=== PATIENT | female | born 1970 | race Caucasian/White ===

== ENCOUNTER 2024-02-19 13:29 | Outpatient (AMB) | payer OTHER, SELFPAY ==
[2024-02-19 13:41] VITALS: BP 124/72; PULSE 91; O2SAT 100; BMI 25.1
--- NOTE | 2024-02-19 13:41 | MHC.OFFVIS ---
Vital Signs 02/19/24 13:41 Height 5 ft 5.5 in Weight 153 lb 0.013 oz BMI 25.1 BP 124/72 Blood Pressure Location Lt brachial Position Sitting Pulse 91 Pulse Source Pulse Oximeter Pulse Oximetry (%) 100 Oxygen Delivery Method Room Air Intake Visit Reasons: Lupus/cm Intake Note: Patient is here to follow up on lupus. Allergies azithromycin [Zithromax] Allergy (Unknown, Verified 02/19/24 13:45) Anaphylaxis codeine Allergy (Unknown, Verified 02/19/24 13:45) Headache diazepam [Valium] Allergy (Unknown, Verified 02/19/24 13:45) Anxiety Medication List - Last Reconciled 02/19/24 by Lukasz Marr MD amitriptyline 300 mg PO BEDTIME lamotrigine ER (Lamictal XR) 300 mg PO DAILY lithium carbonate ER 900 mg PO BID HPI HPI Lupus/cm: Details: Bilateral hip pain returned a month ago. She has been walking regularly with her 2-year-old grandson but reports that pain has come on during her walks. Denies any new rash., oral ulcers, Raynaud's phenomena, fevers, dyspnea, pleurisy, urinary symptoms, joint swelling or pain. She has been experiencing short-term memory loss in the last few months. Review of Systems Const All systems reviewed & are unremarkable except as noted in HPI and below Physical Exam Vital Signs: Last Vital Signs Pulse 91 02/19/24 13:41 BP 124/72 02/19/24 13:41 Pulse Ox 100 02/19/24 13:41 Oxygen Delivery Method Room Air 02/19/24 13:41 BMI result Body Mass Index 25.1 Const Other: General: Comfortable CVS: RRR Respiratory: clear to auscultation bilaterally. Good respiratory effort Skin: No lesions seen MSK: Bilateral trochanteric bursa tenderness was found. Good range of motion of bilateral hips. No synovitis of any joints. Good range of motion of upper extremities and lower extremities. Resting Tremors noted Office Procedures AMB Joint Injection/Aspiration Joint Injection/Aspiration Details: Right trochanteric bursa Prep: site was prepped using aseptic technique Injected: 40 mg of, Kenalog, with 1 mL of and 1% plain lidocaine Procedure: The patient tolerated the procedure well Coding 49392 - Large joint Additional procedure code (CPT) needed (Bilateral trochanteric bursa injections performed modifier needed) AMB Joint Injection/Aspiration Joint Injection/Aspiration Details: Left trochanteric bursa Prep: site was prepped using aseptic technique Injected: 40 mg of, Kenalog, with 1 mL of and 1% plain lidocaine Procedure: The patient tolerated the procedure well Coding 04411 - Large joint Additional procedure code (CPT) needed (Bilateral trochanteric bursa injections performed modifier needed) Office Meds Synvisc-One 48 mg/6 mL intra-articular syringe Performing Provider: Lukasz Marr MD [place] [facility] [place] [facility] Documented (not given) by: Lukasz Marr MD on 02/19/24 16:05 Reason Not Given: Not Medically Necessary Kenalog 40 mg/mL suspension for injection Performing Provider: Lukasz Marr MD [place] [facility] [place] [facility] Administered by: Lukasz Marr MD on 02/19/24 16:05 Dose Route Admin Location Dispensed Lot Number Expiration Date [facility] [employer] 40 mg intrabursal 1 mL AP [id number] [employer] lidocaine (PF) 10 mg/mL (1 %) injection solution Performing Provider: Lukasz Marr MD [place] [facility] [place] [facility] Administered by: Lukasz Marr MD on 02/19/24 16:05 Dose Route Admin Location Dispensed Lot Number Expiration Date [facility] [employer] 10 mg Infiltration 2 mL [id number] [facility] Kenalog 40 mg/mL suspension for injection Performing Provider: Lukasz Marr MD [place] [facility] [place] [facility] Administered by: Lukasz Marr MD on 02/19/24 16:05 Dose Route Admin Location Dispensed Lot Number Expiration Date [facility] [employer] 40 mg intrabursal 1 mL AP [id number] [employer] lidocaine (PF) 10 mg/mL (1 %) injection solution Performing Provider: Lukasz Marr MD [place] [facility] [place] [facility] Administered by: Lukasz Marr MD on 02/19/24 16:05 Dose Route Admin Location Dispensed Lot Number Expiration Date [facility] [employer] 10 mg Infiltration 2 mL [id number] [facility] Assessment & Plan Assessment & Plan (1) Systemic lupus erythematosus: Comment: Diagnosed in 2014 with SLE/mixed connective tissue disease in [place] due to only having 1 episode of scleritis and positive serologies(QUEENIE 1:640, positive ME[employer]ICE antibody, positive anti CCP antibody 72 and:. She was on hydroxychloroquine in 2014, which was decreased to 300 mg daily 08/05/2018 then discontinued. She has not had any new flares. Clinically and serologically quiescent off of DMARD therapy. Code(s): M32.9 - Systemic lupus erythematosus, unspecified Category: Medical Plan: We will monitor labs for disease activity. Labs ordered this visit Return to clinic in 3 months (2) Greater trochanteric bursitis of both hips: Comment: Uncontrolled. Code(s): M70.61 - Trochanteric bursitis, right hip; M70.62 - Trochanteric bursitis, left hip Category: Medical Plan: She received bilateral trochanteric bursa injections this visit Return to clinic in 3 months Continue to do home exercise program learned from PT in the past Orders: Orders Erythrocyte Sedimentation Rate Today M32.9 - Systemic lupus erythematosus, unspecified Alanine Aminotransferase Today M32.9 - Systemic lupus erythematosus, unspecified Creatinine Today M32.9 - Systemic lupus erythematosus, unspecified AMB Joint Injection/Aspiration Today M70.61 - Trochanteric bursitis, right hip, M70.62 - Trochanteric bursitis, left hip QUEENIE Reflex Titer and Pattern Today M32.9 - Systemic lupus erythematosus, unspecified Anti DNA DS Antibody Today M32.9 - Systemic lupus erythematosus, unspecified Aspartate Amino Transferase Today M32.9 - Systemic lupus erythematosus, unspecified C Reactive Protein Today M32.9 - Systemic lupus erythematosus, unspecified Complete Blood Count Auto Diff Today M32.9 - Systemic lupus erythematosus, unspecified Complement C4 Today M32.9 - Systemic lupus erythematosus, unspecified Complement C3 Today M32.9 - Systemic lupus erythematosus, unspecified Protein Creatinine Ratio, Ur Today M32.9 - Systemic lupus erythematosus, unspecified UA w Microscopic Today M32.9 - Systemic lupus erythematosus, unspecified AMB Joint Injection/Aspiration Today M70.61 - Trochanteric bursitis, right hip, M70.62 - Trochanteric bursitis, left hip Medications: New Kenalog (triamcinolone acetonide) 40 mg intrabursal ONCE 1 mL 0RF NS M70.61 - Trochanteric bursitis, right hip, M70.62 - Trochanteric bursitis, left hip lidocaine (PF) 10 mg Infiltration ONCE 1 mL 0RF M70.61 - Trochanteric bursitis, right hip, M70.62 - Trochanteric bursitis, left hip lidocaine (PF) 10 mg Infiltration ONCE 1 mL 0RF M70.61 - Trochanteric bursitis, right hip, M70.62 - Trochanteric bursitis, left hip Synvisc-One (hylan g-f 20) 48 mg (6 mL) intra-articular ONCE 6 mL 0RF NS M70.61 - Trochanteric bursitis, right hip, M70.62 - Trochanteric bursitis, left hip Kenalog (triamcinolone acetonide) 40 mg intrabursal ONCE 1 mL 0RF NS M70.61 - Trochanteric bursitis, right hip, M70.62 - Trochanteric bursitis, left hip Coding Level of Care Code Est Pt Level 4 (37284) Complex EM visit Add On G2211 Diagnoses Systemic lupus erythematosus M32.9 Greater trochanteric bursitis of both hips M70.61; M70.62 CPT Codes Coding - 16221 Large joint: 76904 - Large joint ([id number]) Coding - 48590 Large joint: 22429 - Large joint ([id number])
== END 2024-02-19 14:23 | disposition home or self-care (01) ==
PROVIDERS: PCP Internal Medicine; Visit Provider Internal Medicine Rheumatology
DX: M32.9 Systemic lupus erythematosus, unspecified (principal); M70.61 Trochanteric bursitis, right hip; M70.62 Trochanteric bursitis, left hip
CPT/HCPCS: 20610; 99214

== ENCOUNTER → 2024-02-19 13:29 | Outpatient (BNVA) | payer OTHER, SELFPAY | PROVIDERS: PCP Internal Medicine; Visit Provider Internal Medicine Rheumatology | DX: M32.9 Systemic lupus erythematosus, unspecified (principal); M70.62 Trochanteric bursitis, left hip; M70.61 Trochanteric bursitis, right hip | CPT/HCPCS: 20610; 99212; J2003; J3300 ==

== ENCOUNTER 2024-05-19 10:26 | Outpatient (REF) | payer OTHER, SELFPAY ==
[2024-05-19 11:02] LABS: MANUAL DIFF FLAG NO
[2024-05-19 11:18] LABS: Basophils Percent Auto 0.3 % (0-2); Eosinophils Absolute Auto 0.1 X10*3/uL (0.0-0.4); Eosinophils Percent Auto 1.8 % (0-4); Hematocrit 35.2 % (37.0-47.0); Hemoglobin 11.5 g/dl (12.0-16.0); Imm Gran Abs Auto 0.02 X10*3/uL (0.00-0.03); Imm Gran Pct Auto 0.5 % (0.0-0.4); Lymphocytes Absolute Auto 1.1 X10*3/uL (1.2-4.9); Lymphocytes Percent Auto 27.3 % (20-40); Mean Corpuscular HGB Conc 32.7 g/dl (31.0-35.0); Mean Corpuscular Hemoglobin 29.5 pg (27.0-33.0); Mean Corpuscular Volume 90.3 fL (80.0-98.0); Mean Platelet Volume 9.1 fL (9.4-12.3); Monocytes Absolute Auto 0.3 X10*3/uL (0.1-1.2); Monocytes Percent Auto 7.3 % (2-11); Neutrophils Absolute Auto 2.4 x10*3/uL (2.0-8.3); Neutrophils Percent Auto 62.8 % (45-73); Platelet Count 268 X10*3/uL (160-400); Red Cell Distribution Width 15.3 % (11.0-16.0); White Blood Count 3.9 X10*3/uL (4.8-10.8)
[2024-05-19 11:19] LABS: Appearance Urine Clear; Color Urine Yellow; Glucose Urine UA Negative (Negative); Leukocyte Esterase Urine Trace (Negative); Nitrite Urine Negative (Negative); PH 6.5 (5.0-9.0); Specific Gravity - Urine 1.015 (1.005-1.025); UMIC TRIGGER UA YES; Urine Blood Negative (Negative); Urine Ketones Negative (Negative); Urine Protein Negative (Neg-Trace)
[2024-05-19 11:23] LABS: Bacteria Urine Trace (None Seen); Hyaline Casts Urine 0-2 /LPF (0-2); RBC Urine 0-2 /HPF (0-2); Squamous Epithelial Cell Urine 0-2 /HPF (0-2); WBC Urine 0-5 /HPF (0-5)
[2024-05-19 11:55] LABS: Erythrocyte Sedimentation Rate 19 MM/HR (0-20)
[2024-05-19 12:03] LABS: Alanine Aminotransferase 13 U/L (0-31); Aspartate Amino Transferase 13 U/L (5-31); C Reactive Protein 0.16 mg/dL (< or = 0.50); Estimated Glomerular Filt Rate > 60
--- OUTSIDE RECORDS SUMMARY | 2024-05-19 12:11 | XMS_ITS | Clinical Summary ---
Author Organization [facility] Address [address] [place] [address] Care Team Providers Care Procurement Agent Name Role Phone Unavailable Primary Care Provider Unavailabl e Surgical History Surgery Date Site/Laterality Comments CHOLECYSTECTOMY PROCEDURE: AR CHOLECYSTECTOMY HYSTERECTOMY PROCEDURE: HISTORICAL HYSTERECTOMY; COMMENT: BLEEDING BLADDER SUSPENSION PROCEDURE: HISTORICAL BLADDER SUSPENSION NASAL SEPTUM SURGERY PROCEDURE: AR REPAIR NASAL SEPTAL PERFORATIONS; COMMENT: for sleep apnea BACK SURGERY 07/2020 PROCEDURE: HISTORICAL BACK SURGERY; COMMENT: stim device for bladder Medical History Medical History Date Comments Bipolar affective ([facility]) DX:B ipolar affective ([facility]); COMMENT: dR. Alonzo Smith IBS (irritable bowel syndrome) D X:IBS (irritable bowel syndrome) Urinary incontinence DX:Urinary incontinence; COMMENT: dR. Kamari Chowdhury, NOT ABLE TO TAKE MED DUE TO INTERACTIONS Chronic obstructive pulmonar y disease ([facility]) 05/11/2021 DX:Chronic obstructive pulmo nary disease ([facility]) Family History Medical History Relation Name Comments Other: lupus Mother's side 1 Aunt Multiple sclerosis Mother's side 2 mat un narayan Rheum arthritis Mother's side 2 Uncle Blindness Neg Hx Cataracts Neg Hx Glaucoma Neg Hx Macular degeneration Neg Hx Strabismus Neg Hx Relation Name Status Comments Father Alive cabg, AFIB, ipf VS. OTHER LUNG DISEASE, Mother Alive HEALTHY Mother's side 1 Mother's side 2 Social History Tobacco Use Types Packs/Day Years Used Date Smoking Tobacco: Former Cigarettes Q uit: 08/24/2010 Smokeless Tobacco: Never Alcohol Use Standard Drinks/Week Comments No 0 (1 standard drink = 0.6 oz pur e alcohol) Comments Unknown Sex and Gender Information Value Date Recorded Sex Assigned at Not on file Legal Sex Female 10:07 AM EST Gender Identity Not on file Sexual Orientation Not on file Obstetrics History Plan of Treatment Health Maintenance Due Date Last Done Comments Hepatitis A Vaccines (1 of 2 - Risk 2-dose series) 09/06/1987 Hepatitis B Vaccines (1 of 3 - 19+ 3-dose series) 09/06/1987 Pneumococcal Vaccine: 50+ Years (2 of 2 - PCV) 03/19/2006 03/19/2005 Pneumococcal Vaccine: Pediatrics (0 to 5 Years) and At-Risk Patients (6 to 64 Years) (2 of 2 - PCV) 03/19/2006 03/19/2005 Zoster Vaccines (1 of 2) 2018 Colorectal Cancer Screening: Colonoscopy 02/25/2022 Depression Screening 02/25/2022 HIV Screening 02/25/2022 Hepatitis C Screening 02/25/2022 Social Influencers of Health Screening 02/25/2022 Breast Cancer Screening 03/31/2023 03/31/2021, 03/31 COVID-19 Vaccine ( season) 2023 01/12/2021, 06/18/2020, 05/28/2020 Influenza Vaccine (#1) 2023 2, 11/25/2019, 03/20/2019, Additional history exists DTaP,Tdap,and Td Vaccines (2 - Td or Tdap) 12/11/2024 12/11/2014 HIB Vaccines Aged Out No longer eligi ble based on patient's age to complete this topic HPV Vaccines Aged Out No longer eligi ble based on patient's age to complete this topic IPV Vaccines Aged Out No longer eligi ble based on patient's age to complete this topic MMR Vaccines Aged Out No longer eligi ble based on patient's age to complete this topic Meningococcal ACWY Vaccine Aged Out N o longer eligible based on patient's age to complete this topic Meningococcal B Vacine Aged Out No lo nger eligible based on patient's age to complete this topic RSV Immunization Patients Under 20 months Aged Out No longer eligible based on patient's age to complete this topic Varicella Vaccines Aged Out No longer eligible based on patient's age to complete this topic Procedures Procedure Name Priority Date/Time Associated Diagnosis Comments JULIA SCREENING DIGITAL Routine 03/31/2021 10:13 AM EST Encounter for screening mammogram for malignant neoplasm of breast from Last 3 Months or Most Recently Relevant to Health Maintenance Results * JULIA SCREENING DIGITAL (03/31/2021 10:13 AM EST) Anatomical Region Laterality Modality Mammography 03/31/2021 9:30 AM EST Narrative 03/31/2021 10:13 AM EST [facility] Diagnostic Imaging Department [address] [place] [id number] Patient: ??CHARITY BLANCO ?/Age/Sex: 1970 - 50 - F Unit#: ??[id number] ? Location/Status: ??SPDIMAM/REG CLI ? Mnemonic/Ordering Site: ??DIGSC/SPMAM Ordering Physician: ??LIA GARDNER MD Julia Screening Digital - 03/31/21 - 50 EXAM: [facility] Screening Digital EXAM DATE AND TIME: 03/31/2021 9:50 AM HISTORY: ??Screening. Left breast cyst aspiration in 2017 yielding benign cytology. COMPARISON: ??03/31/20, 04/19/16, 03/17/16, 02/11/14 TECHNIQUE: CC and MLO views of both breasts were obtained using full field digital mammography. Bilateral digital breast tomosynthesis was performed in the MLO projection. Computer aided detection with the [employer] 7.2-H was employed. TISSUE DENSITY: a. The breasts are almost entirely fatty. FINDINGS: No suspicious masses, grouped microcalcifications, or areas of architectural distortion are seen. Few circumscribed nodules are again seen bilaterally, the largest an 11 mm nodule in the central left breast corresponding to the previously sampled complicated cyst. No significant change is seen. There are scattered microcalcifications, unchanged. Vascular calcification is present. The skin is unremarkable. IMPRESSION: Stable mammographic appearance of the breasts. ??No evidence of malignancy is seen. A negative mammogram in the presence of a clinically suspicious palpable abnormality does not preclude the possibility of malignancy or alter the indications for biopsy. BI-RADS: ??Category 2: Benign RECOMMENDATION(S): 1: Routine screening mammogram BILATERAL in 1 year. 72469, 01212 3342F, 7025F Dictating Physician: ??JAELYN MAST MD Electronically Signed by: ??JAELYN MAST MD Dic Date/Time: ??03/31/21 1012 Sign date/Time: ??03/31/21 1013 Procedure Note Jaelyn Mast MD - 03/08/2022 [facility] Diagnostic Imaging Department [address] [place] [id number] Patient: CHARITY BLANCO./Age/Sex: 1970 - 50 - F Unit#: [id number] Location/Status: [facility] Mnemonic/Ordering Site: [facility] Ordering Physician: LIA GARDNER MD [facility] Screening Digital - 03/31/21 - 0950 EXAM: [facility] Screening Digital EXAM DATE AND TIME: 03/31/2021 9:50 AM HISTORY: Screening. Left breast cyst aspiration in 2017 yielding benign cytology. COMPARISON: 03/31/20, 04/19/16, 03/17/16, 02/11/14 TECHNIQUE: CC and MLO views of both breasts were obtained using fullfield digital mammography. Bilateral digital breast tomosynthesis was performedin the MLO projection. Computer aided detection with the Pull.2-NetBeezas employed. TISSUE DENSITY: a. The breasts are almost entirely fatty. FINDINGS: No suspicious masses, grouped microcalcifications, or areas ofarchitectural distortion are seen. Few circumscribed nodules are again seen bilaterally, the largest an 11mm nodule in the central left breast corresponding to the previouslysampled complicated cyst. No significant change is seen. There are scattered microcalcifications, unchanged. Vascular calcification is present. The skin is unremarkable. IMPRESSION: Stable mammographic appearance of the breasts. No evidence of malignancyis seen. A negative mammogram in the presence of a clinically suspicious palpable abnormality does not preclude the possibility of malignancy or alter the indications for biopsy. BI-RADS: Category 2: Benign RECOMMENDATION(S): 1: Routine screening mammogram BILATERAL in 1 year. 92716, 16781 3342F, 7025F Dictating Physician: JAELYN MAST MD Electronically Signed by: JAELYN MAST MD Dic Date/Time: 03/31/21 1012 Sign date/Time: 03/31/21 1013 us Lia Gardner MD IMG BI PROCEDURES Final Resul t from Last 3 Months or Most Recently Relevant to Health Maintenance
[2024-05-19 12:29] LABS: Creatinine Urine 67.99 mg/dL; Total Protein Urine Random < 7 mg/dL (<12)
[2024-05-20 14:09] LABS: Anti DNA DS Antibody <1 IU/mL
[2024-05-20 14:54] LABS: Complement C3 143 mg/dL (83-193)
[2024-05-23 13:48] LABS: Anti Nuclear Antibody Pattern Nuclear, Speckled; Anti Nuclear Antibody Screen POSITIVE (NEGATIVE)
== END 2024-05-19 10:27 | disposition home or self-care (01) ==
LOC: HO.LAB 10:26
PROVIDERS: PCP Internal Medicine; Visit Provider Internal Medicine Rheumatology
DX: M32.9 Systemic lupus erythematosus, unspecified (principal)
CPT/HCPCS: 36415; 81001; 82565; 82570; 84156; 84450; 84460; 85025; 85652; 86038; 86039; 86140; 86160; 86225

== ENCOUNTER 2024-05-22 12:37 | Outpatient (AMB) | payer OTHER, SELFPAY ==
--- NOTE | 2024-05-22 12:47 | A.OFFVIS_ITS ---
Vital Signs 05/22/24 12:51 Height 5 ft 5.5 in Weight 145 lb BMI 23.8 BP 100/70 Blood Pressure Location Lt brachial Position Sitting Pulse 88 Pulse Source Pulse Oximeter Pulse Oximetry (%) 98 Oxygen Delivery Method Room Air Intake Visit Reasons: Follow Up 3mo Intake Note: Patient presents for follow for lupus. Allergies azithromycin [Zithromax] Allergy (Unknown, Verified 05/22/24 12:49) Anaphylaxis codeine Allergy (Unknown, Verified 05/22/24 12:49) Headache diazepam [Valium] Allergy (Unknown, Verified 05/22/24 12:49) Anxiety HPI HPI Follow Up 3mo: Details: She recently developed oral ulcers. She currently has an ulcer on her tongue on left lateral side. She was having ulcers on and off at the tip of her tongue. She has developed a rash on her face. She has increased pain in her shoulders with muscle pain. No joints are swollen. Denies fevers, dyspnea, pleurisy, Raynaud's syndrome, urinary symptoms. She was told her tremors were related to lithium side effect. [place] level was normal. HPI Comments Details: In the last few weeks she has developed rash on her face, oral ulcers, joint pain in upper extremities, fatigue. tremors are worse - side effect of lithium. Review of Systems Const All systems reviewed & are unremarkable except as noted in HPI and below Physical Exam Vital Signs: Last Vital Signs Pulse 88 05/22/24 12:51 BP 100/70 05/22/24 12:51 Pulse Ox 98 05/22/24 12:51 Oxygen Delivery Method Room Air 05/22/24 12:51 BMI result Body Mass Index 23.8 Const Other: General: Comfortable CVS: RRR Respiratory: clear to auscultation bilaterally. Good respiratory effort Oral: Ulceration left lateral tongue Lymphadenopathy: No cervical lymphadenopathy present Skin: Erythema on cheeks, forehead and chin MSK: Bilateral trochanteric bursa tenderness was found. Good range of motion of bilateral hips. Tender bilateral shoulders. No synovitis of any joints. Shoulder abduction right shoulder 160 degrees, left shoulder 170 degrees with good internal external rotation. Results Reviewed Results Reviewed: Labs from 05/22/2019 5th reviewed. Assessment & Plan Assessment & Plan (1) Systemic lupus erythematosus: Comment: New onset development of facial rash, oral ulcers, polyarthralgias, myalgias, leukopenia and mild normocytic anemia are concerning for lupus flare. Rheumatology history: Diagnosed in 2015 with SLE/mixed connective tissue disease in [place] due to only having 1 episode of scleritis and positive serologies (QUEENIE 1:640, positive AUTOPSY ASSISTANT antibody >8.0, positive anti CCP antibody 72). She was on hydroxychloroquine in 2014, which was decreased to 300 mg daily 08/05/2018 then discontinued because she was in remission. Code(s): M32.9 - Systemic lupus erythematosus, unspecified Category: Medical Qualifiers: Systemic lupus erythematosus organ involvement: unspecified Systemic lupus erythematosus type: unspecified Qualified Code(s): M32.9 - Systemic lupus erythematosus, unspecified Plan: T spot and hepatitis B panel ordered. Workup for anemia ordered for hemolytic anemia and iron deficiency Prednisone course ordered After lab results are back, I will restart hydroxychloroquine 300mg daily Return to clinic in 3 months (2) Greater trochanteric bursitis of both hips: Comment: Recurrent pain is tolerable. Code(s): M70.61 - Trochanteric bursitis, right hip; M70.62 - Trochanteric bursitis, left hip Category: Medical Plan: Monitor clinically Continue to do home exercise program learned from PT in the past Return to clinic in 3 months (3) Normocytic anemia: Code(s): D64.9 - Anemia, unspecified Category: Medical Plan: Workup ordered for further evaluation. See above Orders: Orders IRON PROFILE 05/22/24 M32.9 - Systemic lupus erythematosus, unspecified Ferritin 05/22/24 D64.9 - Anemia, unspecified, M32.9 - Systemic lupus erythematosus, unspecified Transferrin 05/22/24 D64.9 - Anemia, unspecified, M32.9 - Systemic lupus erythematosus, unspecified T Spot TB 05/22/24 M32.9 - Systemic lupus erythematosus, unspecified Hepatitis B,C Profile 05/22/24 M32.9 - Systemic lupus erythematosus, unspecified Direct Jessie (REECE) 05/22/24 D64.9 - Anemia, unspecified, M32.9 - Systemic l upus erythematosus, unspecified Haptoglobin 05/22/24 D64.9 - Anemia, unspecified Lactate Dehydrogenase 05/22/24 M32.9 - Systemic lupus erythematosus, unspecified Medications: New prednisone Take 4 tablets daily 3 days, 3 tablets daily 3 days, 2 tablet daily 3 days, 1 tablet daily 3 days, then stop. Take prednisone with food. 5 mg PO DIRECTED 30 days 30 tabs 0RF Coding Level of Care Code Est Pt Level 4 (59942) Complex EM visit Add On G2211 Diagnoses Systemic lupus erythematosus, unspecified SLE type, unspecified organ involvement status M32.9 Systemic lupus erythematosus organ involvement: unspecified Systemic lupus erythematosus type: unspecified Greater trochanteric bursitis of both hips M70.61; M70.62 Normocytic anemia D64.9
[2024-05-22 12:51] VITALS: BP 100/70; PULSE 88; O2SAT 98; BMI 23.8
--- OUTSIDE RECORDS SUMMARY | 2024-05-22 15:09 | XMS_ITS | Clinical Summary ---
Author Organization [facility] Address [address] [place] [address] Care Team Providers Care Custom Furrier Name Role Phone Unavailable Primary Care Provider Unavailabl e Surgical History Surgery Date Site/Laterality Comments CHOLECYSTECTOMY PROCEDURE: TN CHOLECYSTECTOMY HYSTERECTOMY PROCEDURE: HISTORICAL HYSTERECTOMY; COMMENT: BLEEDING BLADDER SUSPENSION PROCEDURE: HISTORICAL BLADDER SUSPENSION NASAL SEPTUM SURGERY PROCEDURE: TN REPAIR NASAL SEPTAL PERFORATIONS; COMMENT: for sleep apnea BACK SURGERY 07/2020 PROCEDURE: HISTORICAL BACK SURGERY; COMMENT: stim device for bladder Medical History Medical History Date Comments Bipolar affective ([facility]) DX:B ipolar affective ([facility]); COMMENT: dR. Alonzo Smith IBS (irritable bowel syndrome) D X:IBS (irritable bowel syndrome) Urinary incontinence DX:Urinary incontinence; COMMENT: dR. Kamari Chowdhury, NOT ABLE TO TAKE MED DUE TO INTERACTIONS Chronic obstructive pulmonar y disease ([facility]) 05/11/2021 DX:Chronic obstructive pulmo nary disease ([facility]) Family History Medical History Relation Name Comments [...] AM EST Narrative 03/31/2021 10:13 AM EST [facility] Diagnostic Imaging Department [address] [place] [id number] Patient: ??CHARITY BLANCO ?/Age/Sex: 1970 - 50 - F Unit#: ??[id number] ? Location/Status: ??SPDIMAM/REG CLI ? Mnemonic/Ordering Site: ??DIGSC/SPMAM Ordering Physician: ??LIA GARDNER MD Julia Screening Digital - 03/31/21 - 50 EXAM: [facility] Screening Digital EXAM DATE AND TIME: 03/31/2021 9:50 AM HISTORY: ??Screening. Left breast cyst aspiration in 2017 yielding benign cytology. COMPARISON: ??03/31/20, 04/19/16, 03/17/16, 02/11/14 TECHNIQUE: CC and MLO views of both breasts were obtained using full field digital mammography. Bilateral digital breast tomosynthesis was performed in the MLO projection. Computer aided detection with the [employer] 7.2-H was employed. TISSUE DENSITY: a. The [...] Routine screening mammogram BILATERAL in 1 year. 27058, 14799 3342F, 7025F Dictating Physician: ??JAELYN MAST MD Electronically Signed by: ??JAELYN MAST MD Dic Date/Time: ??03/31/21 1012 Sign date/Time: ??03/31/21 1013 Procedure Note Jaelyn Mast MD - 03/08/2022 [facility] Diagnostic Imaging Department [address] [place] [id number] Patient: CHARITY BLANCO./Age/Sex: 1970 - 50 - F Unit#: [id number] Location/Status: [facility] Mnemonic/Ordering Site: [facility] Ordering Physician: LIA GARDNER MD [facility] Screening Digital - 03/31/21 - 0950 EXAM: [facility] Screening Digital EXAM DATE AND TIME: 03/31/2021 9:50 AM HISTORY: Screening. Left breast cyst aspiration in 2017 yielding benign cytology. COMPARISON: 03/31/20, 04/19/16, 03/17/16, 02/11/14 TECHNIQUE: CC and MLO views of both breasts were obtained using fullfield digital mammography. Bilateral digital breast tomosynthesis was performedin the MLO projection. Computer aided detection with the [employer]@as employed. TISSUE DENSITY: a. The breasts are [...] Routine screening mammogram BILATERAL in 1 year. 82337, 95350 3342F, 7025F Dictating Physician: JAELYN MAST MD Electronically Signed by: JAELYN MAST MD Dic Date/Time: 03/31/21 1012 Sign date/Time: 03/31/21 1013 us Lia Gardner MD IMG BI PROCEDURES Final Resul t from Last 3 Months or Most Recently Relevant to Health Maintenance
== END 2024-05-22 13:36 | disposition home or self-care (01) ==
PROVIDERS: PCP Internal Medicine; Visit Provider Internal Medicine Rheumatology
DX: M32.9 Systemic lupus erythematosus, unspecified (principal); M70.61 Trochanteric bursitis, right hip; M70.62 Trochanteric bursitis, left hip; D64.9 Anemia, unspecified
CPT/HCPCS: 99214; G2211

== ENCOUNTER 2024-05-22 12:37 | Outpatient (REF) | payer OTHER, SELFPAY ==
--- OUTSIDE RECORDS SUMMARY | 2024-05-22 16:32 | XMS_ITS | Clinical Summary ---
Author Organization [facility] Address [address] [place] [address] Care Team Providers Care Data Warehouse Consultant Name Role Phone Unavailable Primary Care Provider Unavailabl e Surgical History Surgery Date Site/Laterality Comments CHOLECYSTECTOMY PROCEDURE: DC CHOLECYSTECTOMY HYSTERECTOMY PROCEDURE: HISTORICAL HYSTERECTOMY; COMMENT: BLEEDING BLADDER SUSPENSION PROCEDURE: HISTORICAL BLADDER SUSPENSION NASAL SEPTUM SURGERY PROCEDURE: DC REPAIR NASAL SEPTAL PERFORATIONS; COMMENT: for sleep apnea BACK SURGERY 07/2020 PROCEDURE: HISTORICAL BACK SURGERY; COMMENT: stim device for bladder Medical History Medical History Date Comments Bipolar affective ([facility]) DX:B ipolar affective ([facility]); COMMENT: dR. Alonzo Smith IBS (irritable bowel syndrome) D X:IBS (irritable bowel syndrome) Urinary incontinence DX:Urinary incontinence; COMMENT: dR. Kamari Chowdhury, NOT ABLE TO TAKE MED DUE TO INTERACTIONS Chronic obstructive pulmonar y disease ([facility]) 05/11/2021 DX:Chronic obstructive pulmo nary disease ([facility]) Family History Medical History Relation [...] AM EST Narrative 03/31/2021 10:13 AM EST [facility] Diagnostic Imaging Department [address] [place] [id number] Patient: ??CHARITY BLANCO ?/Age/Sex: 1970 - 50 - F Unit#: ??[id number] ? Location/Status: ??SPDIMAM/REG CLI ? Mnemonic/Ordering Site: ??DIGSC/SPMAM Ordering Physician: ??LIA GARDNER MD Julia Screening Digital - 03/31/21 - 50 EXAM: [facility] Screening Digital EXAM DATE AND TIME: 03/31/2021 9:50 AM HISTORY: ??Screening. Left breast cyst aspiration in 2017 yielding benign cytology. COMPARISON: ??03/31/20, 04/19/16, 03/17/16, 02/11/14 TECHNIQUE: CC and MLO views of both breasts were obtained using full field digital mammography. Bilateral digital breast tomosynthesis was performed in the MLO projection. Computer aided detection with the [employer] 7.2-H was employed. TISSUE DENSITY: a. The [...] Routine screening mammogram BILATERAL in 1 year. 08258, 28840 3342F, 7025F Dictating Physician: ??JAELYN MAST MD Electronically Signed by: ??JAELYN MAST MD Dic Date/Time: ??03/31/21 1012 Sign date/Time: ??03/31/21 1013 Procedure Note Jaelyn Mast MD - 03/08/2022 [facility] Diagnostic Imaging Department [address] [place] [id number] Patient: CHARITY BLANCO./Age/Sex: 1970 - 50 - F Unit#: [id number] Location/Status: [facility] Mnemonic/Ordering Site: [facility] Ordering Physician: LIA GARDNER MD [facility] Screening Digital - 03/31/21 - 0950 EXAM: [facility] Screening Digital EXAM DATE AND TIME: 03/31/2021 9:50 AM HISTORY: Screening. Left breast cyst aspiration in 2017 yielding benign cytology. COMPARISON: 03/31/20, 04/19/16, 03/17/16, 02/11/14 TECHNIQUE: CC and MLO views of both breasts were obtained using fullfield digital mammography. Bilateral digital breast tomosynthesis was performedin the MLO projection. Computer aided detection with the [employer] employed. TISSUE DENSITY: a. The breasts are [...] Routine screening mammogram BILATERAL in 1 year. 70848, 58759 3342F, 7025F Dictating Physician: JAELYN MAST MD Electronically Signed by: JAELYN MAST MD Dic Date/Time: 03/31/21 1012 Sign date/Time: 03/31/21 1013 us Lia Gardner MD IMG BI PROCEDURES Final Resul t from Last 3 Months or Most Recently Relevant to Health Maintenance
[2024-05-23 09:08] LABS: HBc Num1 0.06 S/CO (0.00-0.79); HBsAGNum1 0.27 S/CO (0.00-0.99); Hepatitis B Core Antibody Nonreactive (Nonreactive); Hepatitis B Surface Antigen Negative (Negative); ~Hepatitis B Surface Antibody NONREACTIVE (Nonreactive); ~Hepatitis C Antibody Nonreactive (Nonreactive)
[2024-05-23 12:04] LABS: Iron 52 mcg/dL (30-160); Percent Iron Saturation 23 % (15-50); Total Iron Binding Capacity 225 mcg/dL (228-428); Unsaturated Iron Binding 173 ug/dL
[2024-05-23 12:05] LABS: Haptoglobin 192 mg/dL (35-250)
[2024-05-23 12:29] LABS: Ferritin 163 ng/mL (10-250)
[2024-05-23 12:41] LABS: Lactate Dehydrogenase 164 U/L (122-220)
[2024-05-24 19:19] LABS: Transferrin 200 mg/dL (188-341)
[2024-05-26 09:39] LABS: TS Negative Control Passed; TS Panel A 0; TS Panel B 0; TS Positive Control Passed; TSpotTB Negative (Negative)
== END 2024-05-22 12:38 | disposition home or self-care (01) ==
LOC: HO.HKASLDS 12:37
PROVIDERS: PCP Internal Medicine; Visit Provider Internal Medicine Rheumatology
DX: M32.9 Systemic lupus erythematosus, unspecified (principal); D64.9 Anemia, unspecified; M70.61 Trochanteric bursitis, right hip; M70.62 Trochanteric bursitis, left hip
CPT/HCPCS: 36415; 82728; 83010; 83540; 83615; 84466; 86481; 86704; 86706; 86803; 87340; 99212

== ENCOUNTER 2024-08-27 13:33 | Outpatient (AMB) | payer OTHER, SELFPAY ==
[2024-08-27 13:36] VITALS: BP 124/74; PULSE 88; O2SAT 98; BMI 28.0
--- NOTE | 2024-08-27 13:36 | A.OFFVIS_ITS ---
Vital Signs 08/27/24 13:36 Height 5 ft 5.5 in Weight 171 lb BMI 28.0 BP 124/74 Blood Pressure Location Lt brachial Position Sitting Pulse 88 Pulse Source Pulse Oximeter Pulse Oximetry (%) 98 Oxygen Delivery Method Room Air Intake Visit Reasons: 3 months Intake Note: Patient presents for follow for lupus. Allergies azithromycin [Zithromax] Allergy (Unknown, Verified 08/27/24 13:42) Anaphylaxis codeine Allergy (Unknown, Verified 08/27/24 13:42) Headache diazepam [Valium] Allergy (Unknown, Verified 08/27/24 13:42) Anxiety HPI HPI 3 months: Details: She developed swelling in bilateral lower extremities. She is experiencing left calf spasms. She is unable to feel her feet. She developed purple discoloration of tips of bilateral 2nd toes. She denies trauma associated with onset of discoloration of toes. She is unable to tolerate compression stockings. Denies dyspnea, pleurisy, fevers, rash, urinary symptoms. She has Raynaud's syndrome affecting her right and 2nd fingers with white discoloration when exposed to cold temperatures such as a freezer. Self resolving. Physical Exam Vital Signs: Last Vital Signs Pulse 88 08/27/24 13:36 BP 124/74 08/27/24 13:36 Pulse Ox 98 08/27/24 13:36 Oxygen Delivery Method Room Air 08/27/24 13:36 BMI result Body Mass Index 28.0 Const Other: General: Comfortable CVS: RRR Respiratory: clear to auscultation bilaterally. Good respiratory effort Oral: Ulceration left lateral tongue Lymphadenopathy: No cervical lymphadenopathy present Skin: Erythema on cheeks, forehead and chin MSK: Bilateral trochanteric bursa tenderness was found. Good range of motion of bilateral hips. Tender bilateral shoulders. No synovitis of any joints. Shoulder abduction right shoulder 160 degrees, left shoulder 170 degrees with good internal external rotation. Assessment & Plan Assessment & Plan (1) Localized swelling of both lower legs: Comment: With discoloration of right 2nd and 3rd toes and left 2nd toe is concerning for arterial occlusion. She has calf pain. Less likely related to hydroxychloroquine side effect. Her her presentation is not unknown rare or common side effect of hydroxychloroquine. Code(s): R22.43 - Localized swelling, mass and lump, lower limb, bilateral Category: Medical Plan: I have ordered ultrasound of lower extremities duplex arterial and venous complete studies stat at [facility] (2) Systemic lupus erythematosus: Comment: SLE flare consisting of facial rash, oral ulcers, polyarthralgias, myalgias have resolved after prednisone course and being on hydroxychloroquine. She had leukopenia and mild normocytic anemia May 2024 labs that support SLE flare. She feels well. 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 She was on hydroxychloroquine in 2014, which was decreased to 300 mg daily 08/05/2018 then discontinued because she was in remission. HCQ restarted 05/2024 due to flare consisting of facial rash, oral ulcers, polyarthralgias, myalgias, leukopenia and mild normocytic anemia. Code(s): M32.9 - Systemic lupus erythematosus, unspecified Category: Medical Qualifiers: Systemic lupus erythematosus type: unspecified Systemic lupus erythematosus organ involvement: unspecified Qualified Code(s): M32.9 - Systemic lupus erythematosus, unspecified Plan: Continue hydroxychloroquine 300mg daily Labs for disease and drug monitoring ordered this visit Return to clinic in 3 months (3) Greater trochanteric bursitis of both hips: Comment: Recurrent pain is uncontrolled Code(s): M70.61 - Trochanteric bursitis, right hip; M70.62 - Trochanteric bursitis, left hip Category: Medical Plan: Holding treatment with cortisone injection at this time due to concern for arterial occlusion of lower extremities. I will be in touch with patient in regards to ultrasound results and we will consider scheduling her an appointment in the future for bilateral trochanteric bursa injections Return to clinic in 3 months (4) Normocytic anemia: Code(s): D64.9 - Anemia, unspecified Category: Medical Plan: Rechecking CBC Orders: Orders US duplex arterial venous comp Today R22.43 - Localized swelling, mass and lump, lower limb, bilateral Alanine Aminotransferase Today M32.9 - Systemic lupus erythematosus, unspecified Aspartate Amino Transferase Today M32.9 - Systemic lupus erythematosus, unspecified Creatinine Today M32.9 - Systemic lupus erythematosus, unspecified UA w Microscopic Today M32.9 - Systemic lupus erythematosus, unspecified Complement C4 Today M32.9 - Systemic lupus erythematosus, unspecified Complete Blood Count Man Dif Today M32.9 - Systemic lupus erythematosus, unspecified C Reactive Protein Today M32.9 - Systemic lupus erythematosus, unspecified Erythrocyte Sedimentation Rate Today M32.9 - Systemic lupus erythematosus, unspecified Protein Creatinine Ratio, Ur Today M32.9 - Systemic lupus erythematosus, unspecified Complement C3 Today M32.9 - Systemic lupus erythematosus, unspecified Anti DNA DS Antibody Today M32.9 - Systemic lupus erythematosus, unspecified Coding Level of Care Code Est Pt Level 4 (65528) Complex EM visit Add On G2211 Diagnoses Localized swelling of both lower legs R22.43 Systemic lupus erythematosus, unspecified SLE type, unspecified organ involvement status M32.9 Systemic lupus erythematosus type: unspecified Systemic lupus erythematosus organ involvement: unspecified Greater trochanteric bursitis of both hips M70.61; M70.62 Normocytic anemia D64.9
--- OUTSIDE RECORDS SUMMARY | 2024-08-27 15:19 | XMS_ITS | Clinical Summary ---
Author Organization [facility] Address [address] [place] [address] Care Team Providers Care Eastern Philosophy Professor Name Role Phone Unavailable Primary Care Provider Unavailabl e Surgical History Surgery Date Site/Laterality Comments CHOLECYSTECTOMY PROCEDURE: [place] CHOLECYSTECTOMY HYSTERECTOMY PROCEDURE: HISTORICAL HYSTERECTOMY; COMMENT: BLEEDING BLADDER SUSPENSION PROCEDURE: HISTORICAL BLADDER SUSPENSION NASAL SEPTUM SURGERY PROCEDURE: VT REPAIR NASAL SEPTAL PERFORATIONS; COMMENT: for sleep apnea BACK SURGERY 07/2020 PROCEDURE: HISTORICAL BACK SURGERY; COMMENT: stim device for bladder Medical History Medical History Date Comments Bipolar affective ([facility], [facility] V[facility]) DX:Bipolar affective ([facility]); COMMENT: dR. Alonzo Smith IBS (irritable bowel syndrome) D X:IBS (irritable bowel syndrome) Urinary incontinence DX:Urinary incontinence; COMMENT: dR. Kamari Chowdhury, NOT ABLE TO TAKE MED DUE TO INTERACTIONS Chronic obstructive pulmonar y disease ([facility] V24, [facility] V28) 05/11/2021 DX:Chronic obstructive pulm onary disease ([facility]) Family History Medical History Relation Name Comments [...] season) 2023 01/12/2021, 06/18/2020, 05/28/2020 Influenza Vaccine (Season Ended) 2024 05/11/2021, 11/25/2019, 03/20/2019, Additional history exists DTaP,Tdap,and Td [...] age to complete this topic Meningococcal B Vaccine Aged Out No l onger eligible based on patient's age to complete [...] AM EST Narrative 03/31/2021 10:13 AM EST [facility] Diagnostic Imaging Department [address] [place] [id number] Patient: ??CHARITY BLANCO ?/Age/Sex: 1970 - 50 - F Unit#: ??[id number] ? Location/Status: ??SPDIMAM/REG CLI ? Mnemonic/Ordering Site: ??DIGSC/SPMAM Ordering Physician: ??LIA GARDNER MD Julia Screening Digital - 03/31/21 - 0950 EXAM: [facility] Screening Digital EXAM DATE AND TIME: 03/31/2021 9:50 AM HISTORY: ??Screening. Left breast cyst aspiration in 2017 yielding benign cytology. COMPARISON: ??03/31/20, 04/19/16, 03/17/16, 02/11/14 TECHNIQUE: CC and MLO views of both breasts were obtained using full field digital mammography. Bilateral digital breast tomosynthesis was performed in the MLO projection. Computer aided detection with the [employer] 7.2-H was employed. TISSUE DENSITY: a. The [...] Routine screening mammogram BILATERAL in 1 year. 02048, 26684 3342F, 7025F Dictating Physician: ??JAELYN MAST MD Electronically Signed by: ??JAELYN MAST MD Dic Date/Time: ??03/31/21 101 Sign date/Time: ??03/31/21 1013 Procedure Note Jaelyn Mast MD - 03/08/2022 [facility] Diagnostic Imaging Department [address] [place] [id number] Patient: FRANCISCHARITY D.O.B./Age/Sex: 1970 - 50 - F Unit#: [id number] [facility]Ordering [facility] Ordering Physician: LIA GARDNER MD [facility] Screening Digital - 03/31/21 - 0950 EXAM: [facility] Screening Digital EXAM DATE AND TIME: 03/31/2021 9:50 AM HISTORY: Screening. Left breast cyst aspiration in 2017 yielding benign cytology. COMPARISON: 03/31/20, 04/19/16, 03/17/16, 02/11/14 TECHNIQUE: CC and MLO views of both breasts were obtained using fullfield digital mammography. Bilateral digital breast tomosynthesis was performedin the MLO projection. Computer aided detection with the [employer]as employed. TISSUE DENSITY: a. The breasts are [...] Routine screening mammogram BILATERAL in 1 year. 43264, 62181 3342F, 7025F Dictating Physician: JAELYN MAST MD Electronically Signed by: JAELYN MAST MD Dic Date/Time: 03/31/21 1012 Sign date/Time: 03/31/21 1013 us Lia Gardner MD IMG BI PROCEDURES Final Resul t from Last 3 Months or Most Recently Relevant to Health Maintenance
== END 2024-08-27 14:12 | disposition home or self-care (01) ==
LOC: HO.RHES 13:33
PROVIDERS: PCP Internal Medicine; Visit Provider Internal Medicine Rheumatology
DX: R22.43 Localized swelling, mass and lump, lower limb, bilateral (principal); M32.9 Systemic lupus erythematosus, unspecified; M70.61 Trochanteric bursitis, right hip; M70.62 Trochanteric bursitis, left hip; D64.9 Anemia, unspecified
CPT/HCPCS: 99214; G2211

== ENCOUNTER → 2024-08-27 13:33 | Outpatient (BNVA) | payer OTHER, SELFPAY | PROVIDERS: PCP Internal Medicine; Visit Provider Internal Medicine Rheumatology | DX: M32.9 Systemic lupus erythematosus, unspecified (principal); R22.43 Localized swelling, mass and lump, lower limb, bilateral; I73.00 Raynaud's syndrome without gangrene; M70.61 Trochanteric bursitis, right hip; M70.62 Trochanteric bursitis, left hip; D64.9 Anemia, unspecified | CPT/HCPCS: 99212 ==

== ENCOUNTER 2024-08-27 15:05 | Outpatient (REF) | payer OTHER, SELFPAY ==
--- NOTE | ~2024-08-27 | US_ITS ---
EXAMINATION: US TRIPLEX LOWER EXTREMITY, BILATERAL CLINICAL INFORMATION: Bilateral lower extremity edema COMPARISON: None available. TECHNIQUE: Color-flow triplex imaging with spectral analysis and compression Doppler were performed on the bilateral lower extremities. FINDINGS: Respiratory variation, normal compression and augmented flow are noted throughout the bilateral lower extremities. The visualized common femoral vein, superficial femoral vein, profunda femoral vein, popliteal vein and midcalf peroneal and posterior tibial venous segments show no evidence of deep venous thrombosis bilaterally. US/US venous duplex LE BI IMPRESSION: No evidence of deep venous thrombosis involving the bilateral lower extremities. Electronically signed by: Jason Vásquez MD 08/27/2024 04:14 PM EDT
--- NOTE | ~2024-08-27 | US_ITS ---
EXAMINATION: Noninvasive assessment of the bilateral lower extremities. CLINICAL INFORMATION: Discoloration of feet TECHNIQUE: Duplex Doppler techniques with waveform analysis and measurement of velocities in the bilateral common femoral, profunda femoris, superficial femoral, popliteal and tibial arteries were performed. The study was performed only at rest. COMPARISON: None FINDINGS: DIRECT DUPLEX DOPPLER FINDINGS: RIGHT LEG: Common femoral artery: 182 cm/s, phasicity: Triphasic. Profunda femoris artery: 77 cm/s, phasicity: Probably triphasic. Superficial femoral artery (proximal): 116 cm/s, phasicity: Triphasic. Superficial femoral artery (mid): 107 cm/s, phasicity: Triphasic. Superficial femoral artery (distal): 75 cm/s, phasicity: Triphasic. Popliteal artery: 63 cm/s, phasicity: Triphasic. Posterior tibial artery: 53 cm/s, phasicity: [Triphasic. Peroneal artery: 44 cm/s, phasicity: Triphasic. Anterior tibial artery: 52 cm/s, phasicity: [Triphasic. Dorsalis pedis artery: 32 cm/s, phasicity:Biphasic. LEFT LEG: Common femoral artery: 161 cm/s, phasicity: Triphasic Profunda femoris artery: 50 cm/s, phasicity: Triphasic. Superficial femoral artery (proximal): 108 cm/s, phasicity: Triphasic. Superficial femoral artery (mid): 101 cm/s, phasicity: Triphasic. Superficial femoral artery (distal): 69 cm/s, phasicity: Triphasic. Popliteal artery: 65 cm/s, phasicity: Triphasic. Posterior tibial artery: 66 cm/s, phasicity: Triphasic. Peroneal artery: No color Doppler flow registered. Anterior tibial artery: 74 cm/s, phasicity: Triphasic. Dorsalis pedis artery: 42 cm/s, phasicity: Biphasic. US/US arterial duplex LE BI IMPRESSION: Right leg: Mild inflow disease, dorsalis pedis artery. Probable artifactual waveform registration at the profunda femoris artery. Left leg: Mild inflow disease, dorsalis pedis artery. Concerning occlusion versus Limited Doppler flow restriction, peroneal artery. LANDON Reference: - >1.4 = calcified vessels - 0.9 - 1.4 = normal - no significant arterial disease - 0.7 - 0.89 = mild peripheral arterial disease - 0.51 - 0.69 = moderate peripheral arterial disease - d 0.50 = severe peripheral arterial disease - < .30 = critical arterial disease Electronically signed by: Alexandro Ibrahim MD 08/28/2024 08:17 AM EDT
[2024-08-27 16:51] LABS: Baso%MD 0.6 %; Eos%MD 3.7 %; Hemoglobin 11.6 g/dl (12.0-16.0); IG%MD 0.6 %; Mean Corpuscular HGB Conc 31.4 g/dl (31.0-35.0); Mean Corpuscular Hemoglobin 28.9 pg (27.0-33.0); Mono%MD 6.1 %; Platelet Count 290 X10*3/uL (160-400); Red Blood Count 4.02 X10*6/uL (4.20-5.50); Red Cell Distribution Width 14.9 % (11.0-16.0); White Blood Count 3.3 X10*3/uL (4.8-10.8)
[2024-08-27 17:17] LABS: Alanine Aminotransferase 30 U/L (0-31); Aspartate Amino Transferase 23 U/L (5-31); Estimated Glomerular Filt Rate > 60
[2024-08-27 17:18] LABS: Appearance Urine Clear; Color Urine Yellow; Glucose Urine UA Negative (Negative); Leukocyte Esterase Urine Large (3+) (Negative); Nitrite Urine Negative (Negative); PH 7.5 (5.0-9.0); Specific Gravity - Urine 1.015 (1.005-1.025); UMIC TRIGGER UA YES; Urine Blood Negative (Negative); Urine Ketones Negative (Negative); Urine Protein Negative (Neg-Trace)
[2024-08-27 17:36] LABS: Creatinine Urine 81.32 mg/dL; Total Protein Urine Random < 7 mg/dL (<12)
[2024-08-27 17:37] LABS: Bacteria Urine 3+ (None Seen); Hyaline Casts Urine 0-2 /LPF (0-2); RBC Urine 0-2 /HPF (0-2); WBC Urine 0-5 /HPF (0-5)
[2024-08-27 17:59] LABS: Erythrocyte Sedimentation Rate 16 MM/HR (0-20)
[2024-08-27 18:15] LABS: Atypical Lymphs Percent Manual 1 % (0-6); Band Neutrophils Percent 2 % (3-5); Basophils Percent Manual 1 % (0-2); Eosinophils Absolute Manual 0.1 X10*3/uL (0.0-0.4); Eosinophils Percent Manual 2 % (0-4); Lymphocytes Absolute Manual 0.8 X10*3/uL (1.2-4.9); Lymphocytes Percent Manual 25 % (20-40); Monocytes Absolute Manual 0.2 X10*3/uL (0.1-1.2); Monocytes Percent Manual 5 % (2-11); Neutrophils Absolute Manual 2.2 X10*3/uL (2.0-8.3); Neutrophils Percent Manual 64 % (45-73)
[2024-08-27 18:29] LABS: Platelet Estimate NORMAL (NORMAL); Platelet Morphology Comment NORMAL; RBC Morphology NORMAL
[2024-08-28 19:53] LABS: Complement C3 145 mg/dL (83-193)
[2024-08-28 22:39] LABS: Anti DNA DS Antibody <1 IU/mL
== END 2024-08-27 15:06 | disposition home or self-care (01) ==
LOC: HO.US 15:05
PROVIDERS: PCP Internal Medicine; Visit Provider Internal Medicine Rheumatology
DX: R22.43 Localized swelling, mass and lump, lower limb, bilateral (principal); M32.9 Systemic lupus erythematosus, unspecified
CPT/HCPCS: 36415; 81001; 82565; 82570; 84156; 84450; 84460; 85007; 85027; 85652; 86140; 86160; 86225; 93925; 93970

== ENCOUNTER → 2024-08-27 15:11 | Outpatient (BNV) | payer OTHER, SELFPAY | PROVIDERS: PCP Internal Medicine; Visit Provider Radiology Diagnostic Radiology | DX: L81.9 Disorder of pigmentation, unspecified (principal) | CPT/HCPCS: 93925; 93970 ==

== ENCOUNTER 2024-09-11 13:16 | Outpatient (AMB) | payer OTHER, SELFPAY ==
--- NOTE | 2024-09-11 13:24 | A.OFFVIS_ITS ---
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 Patient states she has some discoloration and swelling in her feet and toes. She also gets cramps, left leg worse. Tingling and burning as well. 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 She reports that her legs are swollen and painful, with cramps occurring primarily in the left leg, which sometimes wake her from sleep. The patient also notes discoloration in her toes, with one toe appearing black and another developing a shashank. The patient denies smoking and diabetes, and she has no significant back pain issues. She has been prescribed ReQuip by her primary care physician for leg cramps, previously managed by her psychiatrist, and Ativan for neuropathy by her neurologist, who has since retired. An ultrasound performed on 08/27/2024 was negative for deep vein thrombosis. Review of Systems Const All systems reviewed & are unremarkable except as noted in HPI and below Reports no additional complaints ENT Reports Normal hearing present Card Denies chest pain, Denies chest pain at rest, Denies chest pain with activity and Denies pedal edema Resp Denies cough GI Denies abdominal pain Musc Denies abnormal gait, Denies muscle cramps and Denies radiating pain into limb Skin/Breast Denies skin ulcer and Denies wounds Neuro Reports Normal hearing present and Denies abnormal gait Psych Reports no additional complaints Physical Exam Const General: cooperative, healthy appearing and comfortable Orientation/consciousness: oriented to person, oriented to place and oriented to time HEENT Head: Yes normal to inspection Neck Neck: Yes normal visual inspection Carotids: no bruits Chest Chest palpation & inspection: normal inspection of the chest Resp Effort & Inspection: normal respiratory effort and able to speak in complete sentences Auscultation: clear to auscultation bilaterally, no crackles, no rales, no rhonchi and no wheezes Cardio Other: Bilateral palpable dorsalis pedis pulses Rate: regular rate Rhythm: regular rhythm Heart sounds: S1 normal heart sound present and S2 normal heart sound present Bruits: no carotid bruits Peripheral pulses: Peripheral pulses 2+ throughout GI Inspection: Yes normal to inspection Skin Wounds: no wounds Hair: normal Neuro General: oriented to person, oriented to place and oriented to time Cranial nerves: Yes CN's II-XII intact bilaterally and Yes Normal hearing present Cognition (Neuro): normal cognition Motor exam (neuro): 5/5 motor strength present throughout Extrem Other: venous exam: +1 edema General: No clubbing, No cyanosis and No edema Psych Appearance: grossly normal Mental Status: mental status grossly normal Speech and movement: Normal speech and movement present Results Reviewed Results Reviewed: DVT testing dated 08/27/2024 was negative for DVT Arterial testing from 08/27/2024 demonstrates minimal disease. Assessment & Plan Assessment & Plan (1) Varicose veins of right lower extremity with inflammation: Code(s): I83.11 - Varicose veins of right lower extremity with inflammation Category: Medical Plan: Patient does have some mild lower extremity swelling. I do believe she does have some neurogenic issues that may be leading to her lateral numbness along with restless leg. Due to the swelling I have taken the liberty of ordering venous insufficiency testing to rule that out. She will follow up with us after testing. (2) PAD (peripheral artery disease): Code(s): I73.9 - Peripheral vascular disease, unspecified Category: Medical Plan: I do not believe she has arterial disease as her testing is within normal limits and she has normal palpable arterial pulses. I do believe that the discoloration on bilateral 2nd toes may be more traumatic in nature. She does need evaluation from Podiatry regarding this. Once again she will follow up with us for her lower extremity swelling venous disease. Thank you for allowing us to assist in her care. Orders: Orders US venous duplex LE BI 1 Week I83.11 - Varicose veins of right lower extremity with inflammation Coding Level of Care Code New Pt Level 4 (75186) Complex EM visit Add On G2211 Diagnoses Varicose veins of right lower extremity with inflammation I83.11 PAD (peripheral artery disease) I73.9
--- OUTSIDE RECORDS SUMMARY | 2024-09-11 15:58 | XMS_ITS | Clinical Summary ---
Author Organization [facility] Address [address] [place] [address] Care Team Providers Care Rug Shampooer Name Role Phone Unavailable Primary Care Provider Unavailabl e Surgical History Surgery Date Site/Laterality Comments CHOLECYSTECTOMY PROCEDURE: [place] CHOLECYSTECTOMY HYSTERECTOMY PROCEDURE: HISTORICAL HYSTERECTOMY; COMMENT: BLEEDING BLADDER SUSPENSION PROCEDURE: HISTORICAL BLADDER SUSPENSION NASAL SEPTUM SURGERY PROCEDURE: [place] REPAIR NASAL SEPTAL PERFORATIONS; COMMENT: for sleep apnea BACK SURGERY 07/2020 PROCEDURE: HISTORICAL BACK SURGERY; COMMENT: stim device for bladder Medical History Medical History Date Comments Bipolar affective ([facility] V 24, [facility] V28) DX:Bipolar affective ([facility]); COMMENT: dR. Alonzo Smith IBS (irritable bowel syndrome) D X:IBS (irritable bowel syndrome) Urinary incontinence DX:Urinary incontinence; COMMENT: dR. Kamari Chowdhury, NOT ABLE TO TAKE MED DUE TO INTERACTIONS Chronic obstructive pulmonar y disease ([facility] V24, [facility] V28) 05/11/2021 DX:Chronic obstructive pulm onary disease ([facility]) Family History Medical History Relation [...] Procedure Name Priority Date/Time Associated Diagnosis Comments [facility] SCREENING DIGITAL Routine 03/31/2021 10:13 AM EST Encounter for screening mammogram for malignant neoplasm of breast from Last 3 Months or Most Recently Relevant to Health Maintenance Results * [facility] SCREENING DIGITAL (03/31/2021 10:13 AM EST) Anatomical Region Laterality Modality Mammography 03/31/2021 9:30 AM EST Narrative 03/31/2021 10:13 AM EST [facility] Diagnostic Imaging Department [address] [place] [id number] Patient: CHARITY BLANCO./Age/Sex: 1970 - 50 - F Unit#: [id number] Location/Status: SPDIMAM/REG CLI Mnemonic/Ordering Site: [facility] Ordering Physician: LIA GARDNER MD [facility] Screening Digital - 03/31/2150 EXAM: [facility] Screening Digital EXAM DATE AND TIME: 03/31/2021 9:50 AM HISTORY: Screening. Left breast cyst aspiration in 2017 yielding benign cytology. COMPARISON: 03/31/20, 04/19/16, 03/17/16, 02/11/14 TECHNIQUE: CC and MLO views of both breasts were obtained using full field digital mammography. Bilateral digital breast tomosynthesis was performed in the MLO projection. Computer aided detection with the [employer] 7.2-H was employed. TISSUE DENSITY: a. The [...] appearance of the breasts. No evidence of malignancy is seen. A negative mammogram in the presence of a clinically suspicious palpable abnormality does not preclude the possibility of malignancy or alter the indications for biopsy. BI-RADS: Category 2: Benign RECOMMENDATION(S): 1: Routine screening mammogram BILATERAL in 1 year. 25563, 83221 3342F, 7025F Dictating Physician: JAELYN MAST MD Electronically Signed by: JAELYN MAST MD Dic Date/Time: 03/31/21 1012 Sign date/Time: 03/31/21 1013 Procedure Note Jaelyn Mast MD - 03/08/2022 [facility] Diagnostic Imaging Department [address] [place], [place] [id number] Patient: CHARITY BLANCO D.O.B./Age/Sex: 1970 - 50 - F Unit#: [id number] Location/Status: [facility] CLI Mnemonic/Ordering Site: [facility] Ordering Physician: LIA GARDNER MD [facility] Screening Digital - 03/31/21 - 50 EXAM: [facility] Screening Digital EXAM DATE AND TIME: 03/31/2021 9:50 AM HISTORY: Screening. Left breast cyst aspiration in 2017 yielding benign cytology. COMPARISON: 03/31/20, 04/19/16, 03/17/16, 02/11/14 TECHNIQUE: CC and MLO views of both breasts were obtained using fullfield digital mammography. Bilateral digital breast tomosynthesis was performedin the MLO projection. Computer aided detection with the [employer] employed. TISSUE DENSITY: a. The breasts are [...] Routine screening mammogram BILATERAL in 1 year. 34087, 96199 3342F, 7025F Dictating Physician: JAELYN MAST MD Electronically Signed by: JAELYN MAST MD Dic Date/Time: 03/31/21 1012 Sign date/Time: 03/31/21 1013 us Lia Gardner MD IMG BI PROCEDURES Final Resul t from Last 3 Months or Most Recently Relevant to Health Maintenance
== END 2024-09-11 13:47 | disposition home or self-care (01) ==
LOC: HO.HVS 13:16
PROVIDERS: PCP Internal Medicine; Visit Provider Surgery Vascular Surgery
DX: I83.11 Varicose veins of right lower extremity with inflammation (principal); I73.9 Peripheral vascular disease, unspecified
CPT/HCPCS: 99204; G2211

== ENCOUNTER → 2024-09-11 13:16 | Outpatient (BNVA) | payer OTHER, SELFPAY | PROVIDERS: PCP Internal Medicine; Visit Provider Surgery Vascular Surgery | DX: I83.11 Varicose veins of right lower extremity with inflammation (principal); I73.9 Peripheral vascular disease, unspecified | CPT/HCPCS: 99202 ==

== ENCOUNTER 2024-10-10 13:11 | Outpatient (REF) | payer OTHER, SELFPAY ==
--- NOTE | ~2024-10-10 | US_ITS ---
EXAMINATION: US LOWER EXTREMITY VENOUS (REFLUX EXAM), BILATERAL CLINICAL INFORMATION: Varicose veins of the right lower extremity with inflammation COMPARISON: None. TECHNIQUE: Color flow triplex imaging and compression Doppler was performed to evaluate both the deep and the superficial systems bilaterally. To evaluate the superficial system, the examination was performed in the upright position. Color-flow Doppler ultrasound and compression ultrasound were utilized. In addition, maneuvers were utilized to demonstrate reflux. FINDINGS: 1. DEEP VENOUS ULTRASOUND OF THE RIGHT LOWER EXTREMITY: Common Femoral Vein: Compressible, normal respiratory variation and augmented flow. Femoral Vein: Compressible, normal color flow and augmentation. Popliteal Vein: Compressible, normal augmentation. Deep Reflux: There is no evidence of reflux in the deep system in either the common femoral vein, superficial femoral or the popliteal vein. 2. SUPERFICIAL ULTRASOUND WITH DOPPLER OF RIGHT LOWER EXTREMITY: GREAT SAPHENOUS VEIN: Saphenofemoral Junction: 0.5 cm; Reflux: 0 ms Proximal Thigh: 0.4 cm; Reflux: 0 ms Mid Thigh: 0.3 cm; Reflux: 0 ms Distal Thigh: 0.4 cm; Reflux: 0 ms At Knee: 0.3 cm; Reflux: 0 ms Below Knee/Proximal Calf: 0.4 cm; Reflux: 0 ms Mid Calf: 0.3 cm; Reflux: 0 ms Ankle/Distal Calf: 0.3 cm; Reflux: 0 ms Lateral accessory GREAT SAPHENOUS VEIN: Saphenofemoral Junction: 0.3 cm; Reflux: 0 ms SMALL SAPHENOUS VEIN: Drainage: Popliteal vein Saphenopopliteal Junction: 0.5 cm; Reflux: 0 ms Mid calf: 0.2 cm; Reflux: 0 ms Distal: 0.3 cm; Reflux: 0 ms VEIN OF GIACOMINI: None imaged PERFORATORS: Location: Greater saphenous vein, mid thigh Size: 0.3 cm Reflux: 0 ms VARICOSITIES > 3mm: Location: None Imaged 3. DEEP VENOUS ULTRASOUND OF THE LEFT LOWER EXTREMITY: Common Femoral Vein: Compressible, normal respiratory variation and augmented flow. Femoral Vein: Compressible, normal color flow and augmentation. Popliteal Vein: Compressible, normal augmentation. Deep Reflux: There is no evidence of reflux in the deep system in either the common femoral vein, superficial femoral or the popliteal vein. 4. SUPERFICIAL ULTRASOUND WITH DOPPLER OF LEFT LOWER EXTREMITY: GREAT SAPHENOUS VEIN: Saphenofemoral Junction: 0.6 cm; Reflux: 0 ms Proximal Thigh: 0.5 cm; Reflux: 0 ms Mid Thigh: 0.4 cm; Reflux: 0 ms Distal Thigh: 0.4 cm; Reflux: 0 ms At Knee: 0.4 cm; Reflux: 0 ms Below Knee/Proximl calf: 0.4 cm; Reflux: 0 ms Mid Calf: 0.3 cm; Reflux: 0 ms Distal Calf/Ankle: 0.3 cm; Reflux: 0 ms Medial accessory GREAT SAPHENOUS VEIN: Saphenofemoral Junction: 0.2 cm; Reflux: 0 ms SMALL SAPHENOUS VEIN: Drainage: Popliteal vein Saphenopopliteal Junction: 0.3 cm; Reflux: 0 ms Mid calf: 0.2 cm; Reflux: 0 ms Distal calf: 0.3 cm; Reflux: 0 ms VEIN OF GIACOMINI: None imaged PERFORATORS: Location: Greater saphenous vein, mid thigh Size: 0.2 cm Reflux: 0 ms VARICOSITIES > 3mm: Location: Greater saphenous vein, mid thigh Size: 0.3 cm Reflux: 0 ms US/US venous duplex LE BI IMPRESSION: Right: No venous reflux is demonstrated. Left: No venous reflux is demonstrated. Electronically signed by: Jason Vásquez MD 10/10/2024 02:30 PM EDT RP
--- OUTSIDE RECORDS SUMMARY | 2024-10-10 13:13 | XMS_ITS | Clinical Summary ---
Author Organization [facility] Address [address] [place] [address] Care Team Providers Care Marketing Liaison Name Role Phone Unavailable Primary Care Provider Unavailabl e Surgical History Surgery Date Site/Laterality Comments CHOLECYSTECTOMY PROCEDURE: IN CHOLECYSTECTOMY HYSTERECTOMY PROCEDURE: HISTORICAL HYSTERECTOMY; COMMENT: BLEEDING BLADDER SUSPENSION PROCEDURE: HISTORICAL BLADDER SUSPENSION NASAL SEPTUM SURGERY PROCEDURE: IN REPAIR NASAL SEPTAL PERFORATIONS; COMMENT: for sleep apnea BACK SURGERY 07/2020 PROCEDURE: HISTORICAL BACK SURGERY; COMMENT: stim device for bladder Medical History Medical History Date Comments Bipolar affective ([facility] V 24, [facility] V28) DX:Bipolar affective ([facility]); COMMENT: dR. Alonzo Smith IBS (irritable bowel syndrome) D X:IBS (irritable bowel syndrome) Urinary incontinence DX:Urinary incontinence; COMMENT: dR. Kamari Chowdhury, NOT ABLE TO TAKE MED DUE TO INTERACTIONS Chronic obstructive pulmonar y disease ([facility] V24, [facility] V28) 05/11/2021 DX:Chronic obstructive pulm [...] Maintenance Due Date Last Done Comments Hepatitis B Vaccines (1 of 3 - 19+ 3-dose series) 09/06/1987 Pneumococcal Vaccine: 50+ Years (2 of 2 - PCV) 2018 03/19/2005 Zoster Vaccines (1 of 2) 2018 Breast Cancer Screening 03/31/2023 03/31/2021, 03/31 COVID-19 Vaccine ( - season) 2023 01/12/2021, 06/18/2020, 05/28/2020 Depression Screening 03/19/2024 Influenza Vaccine (#1) 2024 2, 11/25/2019, 03/20/2019, Additional history exists DTaP,Tdap,and Td Vaccines (2 - Td or Tdap) 12/11/2024 12/11/2014 HIB Vaccines Aged Out No longer eligi ble based on patient's age to complete this topic HPV Vaccines Aged Out No longer eligi ble based on patient's age to complete this topic Hepatitis A Vaccines Aged Out No long er eligible based on patient's age to complete [...] Procedure Name Priority Date/Time Associated Diagnosis Comments [facility] SCREENING DIGITAL Routine 03/31/2021 10:13 AM EST Encounter for screening mammogram for malignant neoplasm of breast from Last 3 Months or Most Recently Relevant to Health Maintenance Results * [facility] SCREENING DIGITAL (03/31/2021 10:13 AM EST) Anatomical Region Laterality Modality Mammography 03/31/2021 9:30 AM EST Narrative 03/31/2021 10:13 AM EST [facility] Diagnostic Imaging Department [address] [place] [id number] Patient: CHARITY BLANCO /Age/Sex: 1970 - 50 - F Unit#: [id number] Location/Status: SPDIMAM/REG CLI Mnemonic/Ordering Site: [facility] Ordering Physician: LIA GARDNER MD [facility] Screening Digital - 03/31/2150 EXAM: [facility] Screening Digital EXAM DATE AND TIME: 03/31/2021 9:50 AM HISTORY: Screening. Left breast cyst aspiration in 2017 yielding benign cytology. COMPARISON: 03/31/20, 04/19/16, 03/17/16, 02/11/14 TECHNIQUE: CC and MLO views of both breasts were obtained using full field digital mammography. Bilateral digital breast tomosynthesis was performed in the MLO projection. Computer aided detection with the [employer] 7.2-H was employed. TISSUE DENSITY: a. The [...] Routine screening mammogram BILATERAL in 1 year. 12750, 55649 3342F, 7161F Dictating Physician: JAELYN MAST MD Electronically Signed by: JAELYN MAST MD Dic Date/Time: 03/31/21 101 Sign date/Time: 03/31/21 1013 Procedure Note Jaelyn Mast MD - 03/08/2022 [facility] Diagnostic Imaging Department [address] [place] [id number] Patient: CHARITY BLANCO /Age/Sex: 1970 - 50 - F Unit#: [id number] Location/Status: [facility] CLI Mnemonic/Ordering Site: [facility] Ordering Physician: LIA GARDNER MD [facility] Screening Digital - 03/31/21 - 0950 EXAM: [facility] Screening Digital EXAM DATE AND TIME: 03/31/2021 9:50 AM HISTORY: Screening. Left breast cyst aspiration in 2017 yielding benign cytology. COMPARISON: 03/31/20, 04/19/16, 03/17/16, 02/11/14 TECHNIQUE: CC and MLO views of both breasts were obtained using fullfield digital mammography. Bilateral digital breast tomosynthesis was performedin the MLO projection. Computer aided detection with the [employer] 7.2-Hwas employed. TISSUE DENSITY: a. The breasts are [...] Routine screening mammogram BILATERAL in 1 year. 37977, 17128 3342F, 7025F Dictating Physician: JAELYN MAST MD Electronically Signed by: JAELYN MAST MD Dic Date/Time: 03/31/21 1012 Sign date/Time: 03/31/21 1013 us Lia Gardner MD IMG BI PROCEDURES Final Resul t from Last 3 Months or Most Recently Relevant to Health Maintenance
--- OUTSIDE RECORDS SUMMARY | 2024-10-10 13:13 | XMS_ITS ---
Author Name [facility] Organization Unknown Care Team Organization Name Specialty Phone Email Start Date End Da te [facility] Lia Franco [facility] 01/24/2022 11/05/2023
== END 2024-10-10 13:12 | disposition home or self-care (01) ==
LOC: HO.US 13:11
PROVIDERS: PCP Internal Medicine; Visit Provider Surgery Vascular Surgery
DX: I83.11 Varicose veins of right lower extremity with inflammation (principal)
CPT/HCPCS: 93970

== ENCOUNTER → 2024-10-10 13:15 | Outpatient (BNV) | payer OTHER, SELFPAY | PROVIDERS: PCP Internal Medicine; Visit Provider Radiology Diagnostic Radiology | DX: I83.11 Varicose veins of right lower extremity with inflammation (principal) | CPT/HCPCS: 93970 ==

== ENCOUNTER 2024-11-27 10:46 | Outpatient (AMB) | payer OTHER, SELFPAY ==
--- NOTE | 2024-11-27 10:50 | MHC.OFFVIS ---
Intake Visit Reasons: follow up s/p 10/10/24 Intake Note: Patient presents for follow up. Bilateral leg cramping, left leg is worse. Both feet burn and tingle at times. Both feet and ankles are swollen. Accompanied by: Self / Same As Patient Allergies azithromycin (Zithromax) Allergy (Unknown, Verified 11/27/24 10:53) Anaphylaxis codeine Allergy (Unknown, Verified 11/27/24 10:53) Headache diazepam (Valium) Allergy (Unknown, Verified 11/27/24 10:53) Anxiety HPI HPI follow up s/p 10/10/24: Details: The patient is a 54-year-old female presenting with leg swelling and discoloration. The swelling and discoloration of the left leg have been noted, with the discoloration extending up the leg. The patient denies any back pain issues. The patient reports intermittent burning pain and numbness in her feet, which sometimes extends up her legs. She denies having diabetes, although she is regularly tested for it. There is no history of leg injuries, although she has had ankle fractures in the past. The patient has a history of peripheral neuropathy and restless leg syndrome, for which she takes amitriptyline and ropinirole, respectively. Her previous neurologist retired, and she is currently not under the care of a neurologist. Review of Systems Const All systems reviewed & are unremarkable except as noted in HPI and below Reports no additional complaints ENT Reports Normal hearing present Card Denies chest pain, Denies chest pain at rest, Denies chest pain with activity and Denies pedal edema Resp Denies cough GI Denies abdominal pain Musc Denies abnormal gait, Denies muscle cramps and Denies radiating pain into limb Skin/Breast Denies skin ulcer and Denies wounds Neuro Reports Normal hearing present and Denies abnormal gait Psych Reports no additional complaints Physical Exam Const General: cooperative, healthy appearing and comfortable Orientation/consciousness: oriented to person, oriented to place and oriented to time HEENT Head: Yes normal to inspection Neck Neck: Yes normal visual inspection Carotids: no bruits Chest Chest palpation & inspection: normal inspection of the chest Resp Effort & Inspection: normal respiratory effort and able to speak in complete sentences Auscultation: clear to auscultation bilaterally, no crackles, no rales, no rhonchi and no wheezes Cardio Rate: regular rate Rhythm: regular rhythm Heart sounds: S1 normal heart sound present and S2 normal heart sound present Bruits: no carotid bruits Peripheral pulses: Peripheral pulses 2+ throughout GI Inspection: Yes normal to inspection Skin Wounds: no wounds Hair: normal Neuro General: oriented to person, oriented to place and oriented to time Cranial nerves: Yes CN's II-XII intact bilaterally and Yes Normal hearing present Cognition (Neuro): normal cognition Motor exam (neuro): 5/5 motor strength present throughout Extrem Other: venous exam: No significant superficial varicosities or spider telangiectasias, minimal edema General: No clubbing, No cyanosis and No edema Psych Appearance: grossly normal Mental Status: mental status grossly normal Speech and movement: Normal speech and movement present Results Reviewed Results Reviewed: Brief summary of venous insufficiency testing is as follows: right great saphenous vein: negative right small saphenous vein: negative right accessory vein: none present left great saphenous vein: negative left small saphenous vein: negative left accessory vein: none present Please note there is no evidence of any venous aneurysms or significant tortuosity Assessment & Plan Assessment & Plan (1) Leg pain, bilateral: Code(s): M79.604 - Pain in right leg; M79.605 - Pain in left leg Category: Medical Plan: In short patient is negative for venous insufficiency. In addition I do not believe she has any arterial disease as she does have palpable pulses. I do believe most of hers is neurologic in nature. She does have a prior diagnosis of peripheral neuropathy and restless leg. She has not seen a neurologist in several years after her neurologist retired. It may be worthwhile to re-engage neurology to re-evaluate her situation. She is stable from a vascular perspective. She will follow up with us on an as-needed basis. Plan Patient was informed and verbally consented to the use of an ambient scribe for clinic note documentation during this visit. Patient Instructions: - Follow up with your primary care physician to discuss the referral to a neurologist. - Continue taking prescribed medications and report any changes in symptoms. Coding Level of Care Code Est Pt Level 4 (94711) Diagnoses Leg pain, bilateral M79.604; M79.605
--- OUTSIDE RECORDS SUMMARY | 2024-11-27 14:31 | XMS_ITS | Clinical Summary ---
Author Organization [facility] Address [address] [place] [address] Care Team Providers Care Shoe Puller Name Role Phone Unavailable Primary Care Provider Unavailabl e Surgical History Surgery Date Site/Laterality Comments CHOLECYSTECTOMY PROCEDURE: LA CHOLECYSTECTOMY HYSTERECTOMY PROCEDURE: HISTORICAL HYSTERECTOMY; COMMENT: BLEEDING BLADDER SUSPENSION PROCEDURE: HISTORICAL BLADDER SUSPENSION NASAL SEPTUM SURGERY PROCEDURE: LA REPAIR NASAL SEPTAL PERFORATIONS; COMMENT: for sleep apnea BACK SURGERY 07/2020 PROCEDURE: HISTORICAL BACK SURGERY; COMMENT: stim device for bladder Medical History Medical History Date Comments Bipolar affective ([facility] V 24, [facility] V28) DX:Bipolar affective ([facility]); COMMENT: dR. Alonzo Smith IBS (irritable bowel syndrome) D X:IBS (irritable bowel syndrome) Urinary incontinence DX:Urinary incontinence; COMMENT: dR. Kamari Chowdhury, NOT ABLE TO TAKE MED DUE TO INTERACTIONS Chronic obstructive pulmonar y disease ([facility] V24, [facility] V28) 05/11/2021 DX:Chronic obstructive pulm onary disease ([facility]) Family History Medical History Relation Name Comments [...] 2018 Breast Cancer Screening 03/31/2023 03/31/2021, 03/31 Depression Screening 03/19/2024 COVID-19 Vaccine ( - season) 2024 01/12/2021, 06/18/2020, 05/28/2020 Influenza Vaccine (#1) 2024 2, 11/25/2019, 03/20/2019, [...] Procedure Name Priority Date/Time Associated Diagnosis Comments [facility] Routine 03/31/2021 10:13 AM EST Encounter for screening mammogram for malignant neoplasm of breast from Last 3 Months or Most Recently Relevant to Health Maintenance Results * [facility] (03/31/2021 10:13 AM EST) Anatomical Region Laterality Modality Mammography 03/31/2021 9:30 AM EST Narrative 03/31/2021 10:13 AM EST [facility] Diagnostic Imaging Department [address] [place] [id number] Patient: CHARITY BLANCO /Age/Sex: 1970 - 50 - F Unit#: [id number] Location/Status: SPDIMAM/REG CLI Mnemonic/Ordering Site: [facility] Ordering Physician: LIA GARDNER MD [facility] Screening Digital - 03/31/2150 EXAM: [facility] Screening Digital EXAM DATE AND TIME: 03/31/2021 9:50 AM HISTORY: Screening. Left breast cyst aspiration in 2017 yielding benign cytology. COMPARISON: 03/31/20, 04/19/16, 03/17/16, 02/11/14 TECHNIQUE: CC and MLO views of both breasts were obtained using full field digital mammography. Bilateral digital breast tomosynthesis was performed in the MLO projection. Computer aided detection with the [employer] 7.2-H was employed. TISSUE DENSITY: a. The [...] Routine screening mammogram BILATERAL in 1 year. 92124, 75363 3342F, 9865F Dictating Physician: JAELYN MAST MD Electronically Signed by: JAELYN MAST MD Dic Date/Time: 03/31/21 101 Sign date/Time: 03/31/21 1013 Procedure Note Jaelyn Mast MD - 03/08/2022 [facility] Diagnostic Imaging Department [address] [place] [address] [id number] Patient: CHARITY BLANCO /Age/Sex: 1970 - 50 - F Unit#: [id number] Location/Status: [facility] CLI Mnemonic/Ordering Site: [facility] Ordering Physician: LIA GARDNER MD [facility] Screening Digital - 03/31/21 - 0950 EXAM: [facility] Screening Digital EXAM DATE AND TIME: 03/31/2021 9:50 AM HISTORY: Screening. Left breast cyst aspiration in 2017 yielding benign cytology. COMPARISON: 03/31/20, 04/19/16, 03/17/16, 02/11/14 TECHNIQUE: CC and MLO views of both breasts were obtained using fullfield digital mammography. Bilateral digital breast tomosynthesis was performedin the MLO projection. Computer aided detection with the [employer] 7.2-Hwas employed. TISSUE DENSITY: a. The breasts [...] Routine screening mammogram BILATERAL in 1 year. 35299, 59622 3342F, 7025F Dictating Physician: JAELYN MAST MD Electronically Signed by: JAELYN MAST MD Dic Date/Time: 03/31/21 1012 Sign date/Time: 03/31/21 1013 us Lia Gardner MD IMG BI PROCEDURES Final Resul t from Last 3 Months or Most Recently Relevant to Health Maintenance
== END 2024-11-27 11:20 | disposition home or self-care (01) ==
LOC: HO.HVS 10:47
PROVIDERS: PCP Internal Medicine; Visit Provider Surgery Vascular Surgery
DX: M79.604 Pain in right leg (principal); M79.605 Pain in left leg
CPT/HCPCS: 99214

== ENCOUNTER → 2024-11-27 10:46 | Outpatient (BNVA) | payer OTHER, SELFPAY | PROVIDERS: PCP Internal Medicine; Visit Provider Surgery Vascular Surgery | DX: M79.604 Pain in right leg (principal); M79.605 Pain in left leg | CPT/HCPCS: 99212 ==

== ENCOUNTER 2024-12-03 12:52 | Outpatient (AMB) | payer OTHER, SELFPAY ==
--- NOTE | 2024-12-03 12:55 | A.OFFVIS_ITS ---
Vital Signs 12/03/24 12:56 Height 5 ft 5.5 in Weight 195 lb 12.328 oz BMI 32.1 BP 130/80 Blood Pressure Location Rt brachial Position Sitting Pulse 88 Pulse Source Pulse Oximeter Pulse Oximetry (%) 98 Oxygen Delivery Method Room Air Intake Visit Reasons: 3 Months Intake Note: Patient presents for follow for lupus. Accompanied by: Self / Same As Patient Allergies azithromycin (Zithromax) Allergy (Unknown, Verified 12/03/24 12:55) Anaphylaxis codeine Allergy (Unknown, Verified 12/03/24 12:55) Headache diazepam (Valium) Allergy (Unknown, Verified 12/03/24 12:55) Anxiety Is last menstrual period known: Yes HPI HPI 3 Months: Details: She has been experiencing burning pain in her feet. Having a sheet on her feet is uncomfortable. Denies fevers, dyspnea, pleurisy, oral ulcers, rash, disco loration of fingertips or toes. Denies Raynaud's syndrome. No recent infections. She has been tolerating hydroxychloroquine. Physical Exam Vital Signs: Last Vital Signs Pulse 88 12/03/24 12:56 BP 130/80 12/03/24 12:56 Pulse Ox 98 12/03/24 12:56 Oxygen Delivery Method Room Air 12/03/24 12:56 BMI result Body Mass Index 32.1 Const Other: General: Comfortable CVS: RRR Respiratory: clear to auscultation bilaterally. Good respiratory effort Skin: no lesions. No discoloration of fingers or toes. MSK: Bilateral trochanteric bursa tenderness was found. No synovitis of any joints. Normal ROM UE and lower extremity. Edema LE bilateral up to gayle. Office Procedures AMB Joint Injection/Aspiration Joint Injection/Aspiration Details: Bilateral trochanteric bursa Prep: site was prepped using aseptic technique Injected into each site: 40 mg of, Kenalog, with 1 mL of and 1% plain lidocaine Procedure: Informed verbal consent was obtained. The patient tolerated the procedure well. Postprocedure protocol was discussed with patient. Coding 70838 - Large joint Procedure code (CPT) selection complete AMB Joint Injection/Aspiration Coding 70961 - Large joint Procedure code (CPT) selection complete Office Meds lidocaine (PF) 10 mg/mL (1 %) injection solution Performing Provider: Lukasz Marr MD Performing Location: [facility] Administered by: Suleman Meier RN on 12/03/24 13:52 Dose Route Admin Location Dispensed Lot Number Expiration Date [place] [employer] 1 mL Infiltration 2 mL [id number] 06/16/26 27641-981-92 [facility] Total Dispensed Waste 2 mL 50 % Kenalog 40 mg/mL suspension for injection Performing Provider: Lukasz Marr MD Performing Location: [facility] Administered by: Suleman Meier RN on 12/03/24 13:52 Dose Route Admin Location Dispensed Lot Number Expiration Date [facility] [employer] 40 mg intra-articular 1 mL [id number] 09/15/26 [address]-5 [employer] Total Dispensed Waste 1 mL 0 % lidocaine (PF) 10 mg/mL (1 %) injection solution Performing Provider: Lukasz Marr MD Performing Location: [facility] Administered by: Suleman Meier RN on 12/03/24 13:52 Dose Route Admin Location Dispensed Lot Number Expiration Date [facility] [employer] 1 mL Infiltration 2 mL [id number] 06/16/26 50165-311-94 [employer] Total Dispensed Waste 2 mL 50 % Kenalog 40 mg/mL suspension for injection Performing Provider: Lukasz Marr MD Performing Location: [facility] Administered by: Suleman Meier RN on 12/03/24 13:52 Dose Route Admin Location Dispensed Lot Number Expiration Date [facility] [employer] 40 mg intrabursal 1 mL [id number] 09/15/26 [address]-1 [employer] Total Dispensed Waste 1 mL 0 % Assessment & Plan Assessment & Plan (1) Systemic lupus erythematosus: Comment: Controlled on hydroxychloroquine. She has chronic leukopenia, stable. 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 She was on hydroxychloroquine in 2014, which was decreased to 300 mg daily 08/05/2018 then discontinued because she was in remission. HCQ restarted 05/2024 due to flare consisting of facial rash, oral ulcers, polyarthralgias, myalgias, leukopenia and mild normocytic anemia. Code(s): M32.9 - Systemic lupus erythematosus, unspecified Category: Medical Qualifiers: Systemic lupus erythematosus type: unspecified Systemic lupus erythematosus organ involvement: unspecified Qualified Code(s): M32.9 - Systemic lupus erythematosus, unspecified Plan: Continue hydroxychloroquine 300mg daily. Requesting eye exam from [facility] eye care from August. Labs for disease and drug monitoring ordered this visit Return to clinic in 3 months (2) Greater trochanteric bursitis of both hips: Comment: Recurrent pain is uncontrolled Code(s): M70.61 - Trochanteric bursitis, right hip; M70.62 - Trochanteric bursitis, left hip Category: Medical Plan: patient received bilateral trochanteric bursa injections this visit Return to clinic in 3 months (3) Peripheral neuropathy: Comment: unclear etiology affecting bilateral LE. She has edema of LE but unable to tolerate compression stockings due to pain. I will rule out metabolic neuropathy with labs. Code(s): G62.9 - Polyneuropathy, unspecified Category: Medical Plan: A1c, Vitamin b12 (hx of deficiency on replacement in the past) and TSH ordered She will be following up with PCP at the end of the month for further evaluation (4) Localized swelling of both lower legs: Comment: With discoloration of right 2nd and 3rd toes and left 2nd toe. Discoloration has resolve, likely due to trauma. She was evaluated by vascular surgery -no evidence of arterial or venous disease. Code(s): R22.43 - Localized swelling, mass and lump, lower limb, bilateral Category: Medical Plan: Follow up with PCP Orders: Orders Erythrocyte Sedimentation Rate Today M32.9 - Systemic lupus erythematosus, unspecified Protein Creatinine Ratio, Ur Today M32.9 - Systemic lupus erythematosus, unspecified Complement C4 Today M32.9 - Systemic lupus erythematosus, unspecified Anti DNA DS Antibody Today M32.9 - Systemic lupus erythematosus, unspecified UA ClnCatch+Micro w/rflx Cult Today M32.9 - Systemic lupus erythematosus, unspecified C Reactive Protein Today M32.9 - Systemic lupus erythematosus, unspecified AMB Joint Injection/Aspiration Today M70.61 - Trochanteric bursitis, right hip, M70.62 - Trochanteric bursitis, left hip AMB Joint Injection/Aspiration Today M70.61 - Trochanteric bursitis, right hip, M70.62 - Trochanteric bursitis, left hip Complete Blood Count Auto Diff Today M32.9 - Systemic lupus erythematosus, unspecified Alanine Aminotransferase Today M32.9 - Systemic lupus erythematosus, unspecified Complement C3 Today M32.9 - Systemic lupus erythematosus, unspecified Aspartate Amino Transferase Today M32.9 - Systemic lupus erythematosus, unspecified Creatinine Today M32.9 - Systemic lupus erythematosus, unspecified Hemoglobin A1c Today G62.9 - Polyneuropathy, unspecified Vitamin B12 Today G62.9 - Polyneuropathy, unspecified TSH reflex Free T4 Today G62.9 - Polyneuropathy, unspecified Medications: Changed From hydroxychloroquine 300 mg (1.5 x 200 mg) PO DAILY 30 days 45 tabs 5RF To hydroxychloroquine 300 mg (1.5 x 200 mg) PO DAILY 135 tabs 1RF 90 days Coding Level of Care Code Est Pt Level 4 (66594) Complex EM visit Add On G2211 Diagnoses Systemic lupus erythematosus, unspecified SLE type, unspecified organ inv olvement status M32.9 Systemic lupus erythematosus type: unspecified Systemic lupus erythematosus organ involvement: unspecified Greater trochanteric bursitis of both hips M70.61; M70.62 Peripheral neuropathy G62.9 Localized swelling of both lower legs R22.43 CPT Codes Coding - 04295 Large joint: 79920 - Large joint ([id number]) Coding - 80015 Large joint: 84572 - Large joint ([id number])
[2024-12-03 12:56] VITALS: BP 130/80; PULSE 88; O2SAT 98; BMI 32.1
== END 2024-12-03 13:33 | disposition home or self-care (01) ==
LOC: HO.RHES 12:53
PROVIDERS: PCP Internal Medicine; Visit Provider Internal Medicine Rheumatology
DX: M32.9 Systemic lupus erythematosus, unspecified (principal); M70.61 Trochanteric bursitis, right hip; M70.62 Trochanteric bursitis, left hip; G62.9 Polyneuropathy, unspecified; R22.43 Localized swelling, mass and lump, lower limb, bilateral
CPT/HCPCS: 20610; 99214

== ENCOUNTER 2024-12-03 12:52 | Outpatient (REF) | payer OTHER, SELFPAY ==
[2024-12-03 18:28] LABS: MANUAL DIFF FLAG NO
[2024-12-03 18:30] LABS: Hematocrit 35.2 % (37.0-47.0); Hemoglobin 11.4 g/dl (12.0-16.0); Imm Gran Abs Auto 0.02 X10*3/uL (0.00-0.03); Imm Gran Pct Auto 0.5 % (0.0-0.4); Lymphocytes Absolute Auto 1.0 X10*3/uL (1.2-4.9); Mean Corpuscular HGB Conc 32.4 g/dl (31.0-35.0); Mean Corpuscular Hemoglobin 29.3 pg (27.0-33.0); Mean Corpuscular Volume 90.5 fL (80.0-98.0); NRBC Abs Auto 0.000 X10*3/uL (0.0-0.012); NRBC Pct Auto 0.0 /100WBC (0.0-0.2); Platelet Count 262 X10*3/uL (160-400); Red Blood Count 3.89 X10*6/uL (4.20-5.50); White Blood Count 4.4 X10*3/uL (4.8-10.8)
[2024-12-03 18:50] LABS: Alanine Aminotransferase 17 U/L (0-31); Aspartate Amino Transferase 23 U/L (5-31); Estimated Glomerular Filt Rate > 60
[2024-12-03 19:15] LABS: Vitamin B12 310 pg/mL (200-900)
[2024-12-04 04:40] LABS: Total Hemoglobin (HGBA1C) 2959.2083 umol/L
== END 2024-12-03 12:53 | disposition home or self-care (01) ==
LOC: HO.HKASLDS 12:52
PROVIDERS: PCP Internal Medicine; Visit Provider Internal Medicine Rheumatology
DX: M32.9 Systemic lupus erythematosus, unspecified (principal); D72.819 Decreased white blood cell count, unspecified; M70.61 Trochanteric bursitis, right hip; G62.9 Polyneuropathy, unspecified; M70.62 Trochanteric bursitis, left hip; R22.43 Localized swelling, mass and lump, lower limb, bilateral; Z79.899 Other long term (current) drug therapy
CPT/HCPCS: 20610; 36415; 82565; 82607; 83036; 84443; 84450; 84460; 85025; 85652; 86140; 86160; 86225; 99212; J2003; J3301